=== PATIENT | female | born 1985 | race Caucasian/White ===

== ENCOUNTER 2020-12-14 11:32 | Emergency (ER) | payer OTHER ==
[~2020-12-14] VITALS: Ht 170.2 cm; Wt 87.5 kg
[2020-12-14] MEDS ORDERED: ONDANSETRON ODT 4 MG PO ONE (12:30)
[2020-12-14] MEDS ORDERED: HYDROmorphone 1 MG/ML, 1ML INJ IM ONE (12:30)
[2020-12-14] MEDS ORDERED: ONDANSETRON ODT 4 MG ONE (12:40)
[2020-12-14] MEDS ORDERED: HYDROmorphone 1 MG/ML, 1ML INJ ONE (12:40)
[2020-12-14 14:12] VITALS: BP 132/76
== END 2020-12-14 14:15 | disposition home or self-care (01) ==
LOC: ED 12:19
DX: S82.845A Nondisplaced bimalleolar fracture of left lower leg, initial encounter for closed fracture (principal); W00.0XXA Fall on same level due to ice and snow, initial encounter; Y93.89 Activity, other specified; Y92.89 Other specified places as the place of occurrence of the external cause; Y99.8 Other external cause status
CPT/HCPCS: 29515; 73610; 96372; 99283; J1170; Q0162